=== PATIENT | female | born 2000 | race African-American/Black ===

== ENCOUNTER 2020-01-16 18:21 | Emergency (ER) | payer MEDICAID, SELFPAY ==
--- NOTE | 2020-01-16 | XR_ITS ---
EXAMINATION: XR CHEST CLINICAL INFORMATION: Shortness of breath COMPARISON: None TECHNIQUE: 2 views of the chest were obtained. FINDINGS: No significant abnormality is noted involving the heart, lungs, mediastinum, bony thorax or soft tissues. IMPRESSION: Unremarkable examination.
[2020-01-16 19:23] VITALS: BP 131/77; PULSE 88; RESP 16; TEMP 37; O2SAT 100; BMI 20.4
--- NOTE | 2020-01-16 20:34 | ED.URI ---
HPI - URI/Sore Throat General Chief Complaint: Dyspnea Stated Complaint: DIFF BREATHING Time Seen by Provider: 01/16/20 20:34 History of Present Illness HPI Narrative: patient complains of nasal congestion, postnasal drip, sore throat, pain when eating, no cough, she complains of difficulty breathing and when asked to explain she says it is when she feels congested and feels drip in the back of her throat, she denies any exertional symptoms MD elicited complaint: sore throat and nasal congestion Related Data Previous Rx's Medication Instructions Recorded cetirizine [All Day Allergy 10 mg PO DAILY PRN #14 cap 01/16/20 (cetirizine)] ibuprofen 400 mg PO Q6H PRN #14 tab 01/16/20 Allergies Allergy/AdvReac Type Severity Reaction Status Date / Time No Known Allergies Allergy Verified 01/16/20 19:25 Review of Systems Review of Systems: patient denies chest pain wheezing, no exertional symptoms, no calf pain, no control pills, no rash no abdominal pain no nausea no vomiting no dizziness no feeling faint PMFSH Past Medical History Source: nursing notes reviewed Medical History (Updated 01/16/20 @ 20:44 by VIPUL Hunter) Patient denies significant medical history Social History Social History Smoking Status: Never smoker Substance Use Type: Marijuana Advance Directives: No Advance Directives Information Provided: No Physical Exam Vital Signs and I&O and Narrative: Vital Signs and I&O: Vital Signs Temp 98.6 F 01/16/20 19:23 Pulse 88 01/16/20 19:23 Resp 16 01/16/20 19:23 BP 131/77 01/16/20 19:23 Pulse Ox 100 01/16/20 19:23 Intake & Output 01/16/20 01/16/20 01/17/20 06:59 18:59 06:59 Weight 48.988 kg Body Mass Index 20.4 general appearance, patient is A&O x3, no acute distress, breathing comfortably, speaking in full sentences The nose is mildly congested with clear discharge, there is no sinus tenderness The pharynx is normal in appearance with moist mucous membranes, the patient is not drooling there is no trismus and she can not swallow her own secretions The neck is supple The chest is clear with full equal breath sounds Abdomen soft nontender Heart sounds no murmur, rate and rhythm regular Extremities there is no calf tenderness there is no swelling Skin no rashes Course Course Course Narrative: triage note stated shortness of breath but on further conversation with the patient she used the words hard to breathe described nasal congestion and postnasal drip PERC score is 0 Patient's symptoms are most consistent with allergies or upper respiratory infection Discharge Plan Discharge Clinical Impression: Acute upper respiratory infection Patient Disposition: Home, Self-Care Additional Instructions: the symptoms described are most likely either a mild upper respiratory infection or allergies, there was no sign of any dangerous condition We are trying [facility] allergy medicine to see if it is helpful Return to ER any time for any change or worse condition or any concerns Your chest x-ray was normal Prescriptions: New All Day Allergy (cetirizine) 10 mg capsule 10 mg PO DAILY PRN (Reason: allergy symptoms) Qty: 14 RF: 0 ibuprofen 400 mg tablet 400 mg PO Q6H PRN (Reason: pain) Qty: 14 RF: 0
[2020-01-16] MEDS: Loratadine 10 MG TABLET PO (20:58)
== END 2020-01-16 21:05 | disposition home or self-care (01) ==
PROVIDERS: Physician Assistant Medical; Emergency Provider Emergency Medicine; PCP Family Medicine
DX: J06.9 Acute upper respiratory infection, unspecified (principal); F12.90 Cannabis use, unspecified, uncomplicated; Z20.828 Contact with and (suspected) exposure to other viral communicable diseases
CPT/HCPCS: 71046; 87635; 99283

== ENCOUNTER 2024-05-07 | Outpatient (REF) | payer MEDICAID, SELFPAY ==
--- OUTSIDE RECORDS SUMMARY | 2024-05-07 18:15 | XMS_ITS | Encounter Summary ---
Author Organization [facility] [employer] Address 75 [facility] 7t [place] [address] Care Team Providers Care Forest Technology Professor Name Role Phone Maria D Fernandez MD Primary Care Provider +1- [phone] Encounter Details Date Type Department Care Team (Late st Contact Info) Description 01/03/2023 Abstract [facility] 230 [place], [place] [phone] Maria D Fernandez MD 230 [place], [place] [phone] Preventative health care Social History Tobacco Use [...] facility documented in this encounter Care Teams Forest Technology Professor Relationship Specialty Start Date End Date Maria D Fernandez MD 230 [place], [place] [phone] PCP - General Family Medicine 04/09/18 documented as of this encounter
--- OUTSIDE RECORDS SUMMARY | 2024-05-07 18:15 | XMS_ITS | Encounter Summary ---
Author Organization [employer] Address 75 [facility] 7t [place] [address] Care Team Providers Care Processing Spec Name Role Phone Maria D Fernandez MD Primary Care Provider +1- [phone] Encounter Details Date Type Department Care Team [...] on filedocumented in this encounter Care Teams Processing Spec Relationship Specialty Start Date End Date Maria D Fernandez MD [address] [place] [phone] PCP - General Family Medicine 04/09/18 documented as of this encounter
--- OUTSIDE RECORDS SUMMARY | 2024-05-07 18:15 | XMS_ITS | Encounter Summary ---
Author Organization [employer] Address [address] [facility] 7t [place] [address] Care Team Providers Care Store Team Member Name Role Phone Maria D Fernandez MD Primary Care Provider +1- [phone] Reason for Visit * Reason Onset Date Comments chartprep 05/06/2024 Encounter Details Date Type Department Care Team ([facility] st Contact Info) Description 05/06/2024 Telephone [facility] 230 [place], [place] [phone] Marilee Castillo MA chartprep Social History Tobacco [...] on filedocumented in this encounter Care Teams Store Team Member Relationship Specialty Start Date End Date Maria D Fernandez MD [address] [place] [phone] PCP - General Family Medicine 04/09/18 documented as of this encounter
--- OUTSIDE RECORDS SUMMARY | 2024-05-07 18:15 | XMS_ITS | Encounter Summary ---
Author Organization [employer] Address 75 [facility] 7t [place] [address] Care Team Providers Care Strip Stamp Straightener Name Role Phone Maria D Fernandez MD Primary Care Provider +1- [phone] Encounter Details Date Type Department Care Team (Late st Contact Info) Description 05/07/2024 Telephone [facility] 230 [place], [place] [phone] Maria D Fernandez MD 230 [place], [place] [phone] Social History Tobacco Use Types Packs/Day Years [...] documented as of this encounter Care Teams Strip Stamp Straightener Relationship Specialty Start Date End Date Maria D Fernandez MD [address] [place] [phone] PCP - General Family Medicine 04/09/18 documented as of this encounter
--- OUTSIDE RECORDS SUMMARY | 2024-05-07 18:15 | XMS_ITS | Clinical Summary ---
Author Organization [employer] Address [address] [place] [address] 7t [place] [address] Care Team Providers Care Automatic Lathe Operator Name Role Phone Maria D Fernandez MD Primary Care Provider +1- [phone] Allergies No known active allergies Medications metroNIDAZOLE (Metrogel) 0.75 % vaginal gelIndications:B acterial Vaginosis Insert one applicator into vagina at bedtime for 7 nights 45 g 05/07/19 25 Active levonorgestrel-e thinyl estradiol (Aviane, Alesse, Lessina) 0.1-20 MG-MCG tabletIndication s:Family planning Take 1 tablet by mouth Once per day. 90 tablet 2 05/07/19 25 2025 Active medroxyPROGESTER one (Depo-Provera) 150 MG/ML injectionIndicat ions:Depo-Associate [employer] Of Women a contraceptive status Inject 1 mL (150 [...] 05/07/25 -followed by Dr. Adan Davila of [facility] -dental home encouraged -frederick care proxy [...] Description 05/07/2024 11:30 AM EST Procedure Visit [address] [address] Maria D Fernandez MD Papanicolaou smear for cervical cancer screening (Primary Dx); BV (bacterial vaginosis); Family planning; Routine screening for STI (sexually transmitted infection); Encounter for immunization; Family history of sickle cell anemia; Allergic reaction, sequela; Dietary counseling; Exercise counseling; Other specified health status 05/07/2024 Telephone [facility] [address] [place] [address] [place] [address] Maria D Fernandez MD 05/06/2024 Telephone [facility] 230 [place], [place] [phone] Marilee Castillo MA chartprep 05/06/[address] [phone] Maria D Fernandez MD 05/02/2024 Travel 03/25/2024 Telephone [facility] [address] [place] [address] Maria D Fernandez MD Appointment Request from [...] on patient's age to complete this topic Procedures Procedure Name Priority Date/Time Associated Diagnosis Comments CBC WITH AUTO DIFFERENTIAL Routine 05/07/2024 1:26 PM EST Family history of sickle cell anemia from Last 3 Months Results * (ABNORMAL) CBC auto differential (05/07/2024 1:26 PM EST) White Blood Count 4.7(L) 4.8 - 10.8 X10*3/uL [facility] Red Blood Count 4.45 4.20 - 5.50 X10*6/uL [facility] Hemoglobin 11.8(L) 12.0 - 16.0 g/dl [facility] Hematocrit 38.4 37.0 - 47.0 % [facility] Mean Corpuscular Volume 86.3 80.0 - 98.0 fL [facility] Mean Corpuscular Hemoglobin 26.5(L) 27.0 - 33.0 pg [facility] Mean Corpuscular HGB Conc 30.7(L) 31.0 - 35.0 g/dl [facility] Red Cell Distribution Width 12.6 11.0 - 16.0 % [facility] Platelet Count 357 160 - 400 X10*3/uL [facility] Mean Platelet Volume 9.8 9.4 - 12.3 fL [facility] Neutrophils Percent Auto 44.8(L) 45 - 73 % [facility] Imm Gran Pct Auto 0.0 0.0 - 0.4 % [facility] Lymphocytes Percent Auto 45.0(H) 20 - 40 % [facility] Monocytes Percent Auto 8.7 2 - 11 % [facility] Eosinophils Percent Auto 1.1 0 - 4 % [facility] Basophils Percent Auto 0.4 0 - 2 % [facility] NRBC Pct Auto 0.0 0.0 - 0.2 /100WBC [facility] Neutrophils Absolute Auto 2.1 2.0 - 8.3 x10*3/uL [facility] Imm Gran Abs Auto 0.00 0.00 - 0.03 X10*3/uL [facility] Lymphocytes Absolute Auto 2.1 1.2 - 4.9 X10*3/uL [facility] Monocytes Absolute Auto 0.4 0.1 - 1.2 X10*3/uL [facility] Eosinophils Absolute Auto 0.1 0.0 - 0.4 X10*3/uL [facility] Basophils Absolute Auto 0.0 0.0 - 0.2 X10*3/uL [facility] NRBC Abs Auto 0.000 0.0 - 0.012 X10*3/uL [facility] Blood Venous blood specimen / Unknown 05/07/2024 1:26 PM EST 05/07/2024 4:34 PM EST Maria D Fernandez MD LAB BLOOD ORDERABLES Final Result Performing Organization Address City/State/[facility] Co de Phone Number [facility] [address] [place] [address] [phone] from Last 3 Months Insurance [facility] H[facility] Care Teams Automatic Lathe Operator Relationship Specialty Start Date End Date Jim, MD Maria D [address] [place] [phone] PCP - General Family Medicine 04/09/18
--- OUTSIDE RECORDS SUMMARY | 2024-05-07 18:15 | XMS_ITS | Encounter Summary ---
Author Organization [employer] Address 75 [facility] 7t [place] [address] Care Team Providers Care Well Shooter Name Role Phone Maria D Fernandez MD Primary Care Provider +1- [phone] Encounter Details Date Type Department Care Team (Late st Contact Info) Description 05/06/2024 Telephone [facility] 230 [place] [address] Maria D Fernandez MD 230 [place], [place] [phone] Social History Tobacco Use Types Packs/Day Years [...] on filedocumented in this encounter Care Teams Well Shooter Relationship Specialty Start Date End Date Maria D Fernandez MD [address] [place] [phone] PCP - General Family Medicine 04/09/18 documented as of this encounter"
--- OUTSIDE RECORDS SUMMARY | 2024-05-07 18:15 | XMS_ITS | Encounter Summary ---
Author Organization [facility] [employer] Address 75 [facility] [address] [place] [address] Care Team Providers Care Veterans' Counselor Name Role Phone Maria D Fernandez MD Primary Care Provider +1- [phone] Encounter Details Date Type Department Care Team (Late st Contact Info) Description 04/21/2022 Telephone [facility] 230 [place], [place] [phone] Maria D Fernandez MD 230 [place], [place] [phone] Social History Tobacco Use Types Packs/Day Years [...] on filedocumented in this encounter Care Teams Veterans' Counselor Relationship Specialty Start Date End Date Maria D Fernandez MD 230 [place] [address] PCP - General Family Medicine 04/09/18 documented as of this encounter
--- OUTSIDE RECORDS SUMMARY | 2024-05-07 18:15 | XMS_ITS | Encounter Summary ---
Author Organization [facility] [employer] Address [address] [facility] 7[address] [place] [address] Care Team Providers Care Armature Inspector Name Role Phone Maria D Fernandez MD Primary Care Provider +1- [phone] Reason for Referral * Consultation (Routine) - Pending Review Specialty Diagnoses / Procedures Referred By Contarthur t Referred To Contact Allergy Diagnoses Allergic reaction, sequela Maria D Fernandez MD [address] [place] [address] Phone: tel: fax: Referral ID Status Reason Start Date Expiration Date Visits Requested Visits Authorized [id number] Pending Review Specialty Services Required 05/07/2024 05/07/2025 1 1 Reason for Visit * Reason Comments Pap Encounter Details Date Type Department Care Team (Latest Contact Info) Description 05/07/2024 11:30 AM EST Procedure Visit [facility] [address] [place] [address] [phone] Maria D Fernandez MD [address] [place] [address] [phone] Papanicolaou smear for cervical cancer screening (Primary [...] your housing situation today? I have mone eryna 05/07/[address] you li [...] evaluation. Doing well. Living and working in [place] in [place] LMP:05/03/24 Menses frequency:q mo Menses concerns:none Desires [...] Expires: 05/07/2025 documented as of this encounter Procedures Procedure Name Priority Date/Time Associated Diagnosis Comments CBC WITH AUTO DIFFERENTIAL Routine 05/07/2024 1:26 PM EST Family history of sickle cell anemia documented in this encounter Results * (ABNORMAL) CBC auto differential (05/07/2024 1:26 PM EST) White Blood Count 4.7(L) 4.8 - 10.8 X10*3/uL [facility] Red Blood Count 4.45 4.20 - 5.50 X10*6/uL [facility] Hemoglobin 11.8(L) 12.0 - 16.0 g/dl [facility] Hematocrit 38.4 37.0 - 47.0 % [facility] Mean Corpuscular Volume 86.3 80.0 - 98.0 fL [facility] Mean Corpuscular Hemoglobin 26.5(L) 27.0 - 33.0 pg [facility] Mean Corpuscular HGB Conc 30.7(L) 31.0 - 35.0 g/dl [facility] Red Cell Distribution Width 12.6 11.0 - 16.0 % [facility] Platelet Count 357 160 - 400 X10*3/uL [facility] Mean Platelet Volume 9.8 9.4 - 12.3 fL [facility] Neutrophils Percent Auto 44.8(L) 45 - 73 % [facility] Imm Gran Pct Auto 0.0 0.0 - 0.4 % [facility] Lymphocytes Percent Auto 45.0(H) 20 - 40 % [facility] Monocytes Percent Auto 8.7 2 - 11 % [facility] Eosinophils Percent Auto 1.1 0 - 4 % [facility] Basophils Percent Auto 0.4 0 - 2 % [facility] NRBC Pct Auto 0.0 0.0 - 0.2 /100WBC [facility] Neutrophils Absolute Auto 2.1 2.0 - 8.3 x10*3/uL [facility] Imm Gran Abs Auto 0.00 0.00 - 0.03 X10*3/uL [facility] Lymphocytes Absolute Auto 2.1 1.2 - 4.9 X10*3/uL [facility] Monocytes Absolute Auto 0.4 0.1 - 1.2 X10*3/uL [facility] Eosinophils Absolute Auto 0.1 0.0 - 0.4 X10*3/uL [facility] Basophils Absolute Auto 0.0 0.0 - 0.2 X10*3/uL [facility] NRBC Abs Auto 0.000 0.0 - 0.012 X10*3/uL [facility] Blood Venous blood specimen / Unknown 05/07/2024 1:26 PM EST 05/07/2024 4:34 PM EST us Maria D Fernandez MD LAB BLOOD ORDERABLES Final Result Performing Organization Address City/State/[facility] Co de Phone Number [facility] [address] [place] [phone] documented in this encounter Visit Diagnoses Diagnosis Papanicolaou smear [...] documented as of this encounter Care Teams Armature Inspector Relationship Specialty Start Date End Date Maria D Fernandez MD [address] [place] [phone] PCP - General Family Medicine 04/09/18 documented as of this encounter
[2024-05-08 17:20] LABS: CT PCR NOT DETECTED (Not Detect.); NG PCR NOT DETECTED (Not Detect.)
== END 2024-05-07 00:01 | disposition home or self-care (01) ==
LOC: HO.LNP
PROVIDERS: Visit Provider Family Medicine
DX: Z11.3 Encounter for screening for infections with a predominantly sexual mode of transmission (principal)
CPT/HCPCS: 87491; 87591

== ENCOUNTER 2024-05-07 13:23 | Outpatient (REF) | payer MEDICAID, SELFPAY ==
--- OUTSIDE RECORDS SUMMARY | 2024-05-07 15:31 | XMS_ITS | Clinical Summary ---
Author Organization [employer] Address [address] [place] [address] [address] [place] [address] Care Team Providers Care Refrigeration Specialist Name Role Phone Maria D Fernandez MD Primary Care Provider +1- [phone] Allergies No known active allergies Medications metroNIDAZOLE (Metrogel) 0.75 % vaginal gelIndications:B acterial Vaginosis Insert one applicator into vagina at bedtime for 7 nights 45 g 05/07/19 25 Active levonorgestrel-e thinyl estradiol (Aviane, Alesse, Lessina) 0.1-20 MG-MCG tabletIndication s:Family planning Take 1 tablet by mouth Once per day. 90 tablet 2 05/07/19 25 2025 Active medroxyPROGESTER one (Depo-Provera) 150 MG/ML injectionIndicat ions:Depo-Insulation Technician a contraceptive status Inject 1 mL (150 mg) into the shoulder, thigh, or buttocks every 3 (three) months. 1 mL 3 04/25/19 23 2024 Discontinued(M ed list cleanup (will not trigger notification to Pharmacy)) medroxyPROGESTER one (Depo-Provera) 150 MG/ML suspension prefilled syringe injection syringe 150 mg IM q three months 08/23/19 22 2024 Discontinued(M ed list cleanup (will not trigger notification to Pharmacy)) Hospital, Clinic, or Other Facility Administered Medication Ordered Dose Route Frequency Start Date End Date Status medroxyPROGESTERone (Depo-Provera) injection 150 mgIndications:Depo- Provera contraceptive status 150 mg IM Every 3 months 04/25/2022 Discontinued Active Problems Problem Noted Date Diagnosed Date Papanicolaou smear for cervical cancer screening 05/07/2024 Family planning 05/07/2024 Overview (05/07/2024): Risk benefits alternatives discussed. LMP ending today. Urine HCG negative. Start OCPs 05/07/24. Assessment & Plan (05/07/2024 1:14 PM EST): Risk benefits alternatives discussed. LMP ending today. Urine HCG negative. Start OCPs 05/07/24. Other specified health status 01/03/2023 Overview (05/07/2024): -next comprehensive annual evaluation due after 05/07/25 -followed by Dr[facility] Adan Davila of [facility] -dental home encouraged -frederick care proxy filed 05/07/2024 Resolved Problems Problem Noted Date Diagnosed Date Resolved Date Missed period 08/31/2022 05/07/2024 Unprotected sexual intercourse 08/31/2022 01/03/2023 Assessment & Plan (08/31/2022 3:08 PM EDT): Extensive counseling done She declined control methods I explain to her test may be negative today but is possibly to early she should repeat it in about 3-4 weeks Patient will be contacted for other lab results Laceration of right index fi nger without foreign body without damage to nail 08/31/2022/10/2024 Assessment & Plan (08/31/2022 3:08 PM EDT): Patient reassured Are got cleaned up Encounters Date Type Department Care Team Description 05/07/2024 11:30 AM EST Procedure Visit [address] [address] Maria D Fernandez MD Papanicolaou smear for cervical cancer screening (Primary Dx); BV (bacterial vaginosis); Family planning; Routine screening for STI (sexually transmitted infection); Encounter for immunization; Family history of sickle cell anemia; Allergic reaction, sequela; Dietary counseling; Exercise counseling; Other specified health status 05/07/2024 Telephone [facility] MEDICINE [address] [place] [address] [place] [address] Maria D Fernandez MD 05/06/2024 Telephone [facility] MEDICINE [address] [place], [place] [phone] Marilee Castillo MA chartprep 05/06/[address] [phone] Maria D Fernandez MD 05/02/2024 Travel 03/25/2024 Telephone [facility] [address] [place] [address] Maria D Fernandez MD Appointment Request from Last 3 Months Immunizations Name Administration Dates Next Due DTaP / IPV 11/04/2001, 1,2000,07/03 HPV, Quadrivalent 12/18/2013, 2,02/15/2011,07/28 Hep B, Adolescent or Pediatric 03/29/2006,2000,2000 Hib (PRP-T) 05/29/2001, 1,2000,07/03 IPV 2000, 1,2000,06/28 Influenza injectable quadriv alent preservative free 04/11/2017,12/27/2015,12/23/2014 Influenza, IIV3, injectable 12/18/2013, 9 Influenza, seasonal, injecta ble, preservative free 05/07/2024 MMR 12/07/2008,08/05/2007 Meningococcal MCV4P ACYW-135 04/11/2017,09/13/19 13 TD (adult), 2 Lf tetanus tox oid, preservative free, adsorbed 12/07/2008 Tdap 05/07/2024,09/12/2012 Varicella 01/07/2006,10/07/2001 Family History Medical History Relation Name Comments Hypertension Mother Relation Name Status Comments Mother Social History Tobacco Use Types Packs/Day Years Used Date Smoking Tobacco: Never Smokeless Tobacco: Never Tobacco Cessation:Counseling Given: Not Answered Alcohol Use Standard Drinks/Week Comments Never 0 (1 standard drink = 0.6 oz pur e alcohol) Depression Answer Date Recorded Patient Health Questionnaire-9 Score 0 05/07/2024 Patient Health Questionnaire-9 Score 0 05/07/2024 Last PHQ-9: Questionnaire Data Not on file 0 05/07/2024 Housing Stability Answer Date Recorded What is your housing situation today? I have mone reyna 05/07/[address] you li ve. Do you have problems with any of the following? None of the above 05/07/2024 Food Insecurity Answer Date Recorded Within the past 12 months, y ou worried that your food would run out before you got money to buy more: Never True 05/07/2024 Within the past 12 months,th e food you bought just didn't last and you didn't have enough money to get more: Never True Transportation Answer Date Recorded In the past 12 months, has l ack of transportation kept you from medical appts, meetings, work or from getting things needed for daily living? No 05/07/2024 Utilities Answer Date Recorded In the past 12 months, has t he electric, gas, oil or water company threatened to shut off services in your home? No 05/07/2024 Depression Answer Date Recorded Patient Health Questionnaire-2 Score 0 05/07/2024 Internet Access Answer Date Recorded Internet Access Q1 No 05/07/2024 Internet Access Q2 I do not want or need it 04/10 Comments Unknown Sex and Gender Information Value Date Recorded Sex Assigned at Female 02/06/2022 10:20 AM EDT Legal Sex Female 10:20 AM EDT Gender Identity Female 02/06/2022 10:20 AM EDT Sexual Orientation Straight 02/06/2022 10 :20 AM EDT Last Filed Vital Signs Vital Sign Reading Time Taken Comments Blood Pressure 115/62 05/07/2024 11:47 AM EST Pulse 64 08/31/2022 2:26 PM EDT Temperature 37.1 ??C (98.7 ??F) 05/07/2024 11:[address] Respiratory Rate 20 05/07/2024 11:47 AM EST Oxygen Saturation 96% 05/07/2024 11:47 AM EST Inhaled Oxygen Concentration - - Weight 71 kg (156 lb 9.6 oz) 05/07/2024 11:47 AM EST Height 155.6 cm (5' 1.25 ) 05/07/2024 11:[address] Body Mass Index 29.35 05/07/2024 11:47 AM EST Plan of Treatment Health Maintenance Due Date Last Done Comments HIV Screening 2000 Hepatitis C Screening 2018 Pap Smear 2021 Alcohol/Substance Use Screening 05/07/2025 05/07/2024 COVID-19 Vaccine ( season) 2025 Postponed from 12/09/2023 (Patient Refused) Depression Screening 05/07/2025 05/07/2024, 05/07/19 Family Planning (PISQ) 05/07/2025 05/07/2024 SDOH Screening 05/07/2025 05/07/2024 Tobacco Screening 05/07/2025 05/07/2024 DTaP/Tdap/Td Vaccines (8 - Td or Tdap) 05/07/2034 05/07/2024, 09/12/2012, 12/07/2008, Additional history exists Zoster Vaccines (1 of 2) 2050 RSV Patients and Patients Aged 60 years or older (1 - 1-dose 75+ series) 2075 HIB Vaccines Completed 05/29/2001, 10/08, 2000, Additional history exists IPV Vaccines Completed 11/04/2001, 10/08, 2000, Additional history exists Hepatitis B Vaccines Completed 03/29/2006, 2000, 2000 HPV Vaccines Completed 12/18/2013, 2 09/2011, 02/15/2011, Additional history exists Meningococcal Vaccine Completed 04/11/2017, 013 Influenza Vaccine Completed 05/07/2024, , 12/27/2015, Additional history exists Hepatitis A Vaccines Aged Out No long er eligible based on patient's age to complete this topic Pneumococcal Vaccine: Pediatrics (0 to 5 Years) and At-Risk Patients (6 to 49) Years) Aged Out No longer eligible based on patient's age to complete this topic RSV under 20 months Aged Out No longe r eligible based on patient's age to complete this topic Rotavirus Vaccines Aged Out No longer eligible based on patient's age to complete this topic Insurance [facility] HMO Care Teams Refrigeration Specialist Relationship Specialty Start Date End Date Jim, MD Maria D [address] [place] [id number] PCP - General Family Medicine 04/09/18
--- OUTSIDE RECORDS SUMMARY | 2024-05-07 15:31 | XMS_ITS | Encounter Summary ---
Author Organization [employer] Address [address] [facility] [address] [place] [address] Care Team Providers Care Assembler Garment Form Name Role Phone Maria D Fernandez MD Primary Care Provider +1- [phone] Encounter Details Date Type Department Care Team (Late st Contact Info) Description 05/06/2024 Telephone [facility] MEDICINE [address] [place] [address] Maria D Fernandez MD [address] [place], [place] [phone] Social History Tobacco Use Types Packs/Day Years Used Date Smoking Tobacco: Never Smokeless Tobacco: Never Alcohol Use Standard Drinks/Week Comments Never 0 [...] Orientation Straight 02/06/2022 10 :20 AM EDT documented as of this encounter Miscellaneous Notes * Telephone Encounter - Esperanza Manning - 05/06/2024 9:37 AM EST Tried calling pt due to insurance being rejected number on file goes straight to voicemail. documented in this encounter Plan of Treatment Not on file documented as of this encounter Visit Diagnoses Not on filedocumented in this encounter Care Teams Assembler Garment Form Relationship Specialty Start Date End Date Maria D Fernandez MD [address] [place] [id number] PCP - General Family Medicine 04/09/18 documented as of this encounter
--- OUTSIDE RECORDS SUMMARY | 2024-05-07 15:31 | XMS_ITS | Encounter Summary ---
Author Organization [facility] [employer] Address [address] [facility] [address] [place] [address] Care Team Providers Care Game Moderator Name Role Phone Maria D Fernandez MD Primary Care Provider +1- [phone] Reason for Referral * Consultation (Routine) - Pending Review Specialty Diagnoses / Procedures Referred By Contarthur t Referred To Contact Allergy Diagnoses Allergic reaction, sequela Maria D Fernandez MD [address] [place] [phone] Phone: tel: fax: Referral ID Status Reason Start Date Expiration Date Visits Requested Visits Authorized [id number] Pending Review Specialty Services Required 05/07/2024 05/07/2025 1 1 Reason for Visit * Reason Comments Pap Encounter Details Date Type Department Care Team (Latest Contact Info) Description 05/07/2024 11:30 AM EST Procedure Visit [facility] MEDICINE [address] [place] [address] [phone] Maria D Fernandez MD [address] [place] [address] [phone] Papanicolaou smear for cervical cancer screening (Primary Dx); BV (bacterial vaginosis); Family planning; Routine screening for STI (sexually transmitted infection); Encounter for immunization; Family history of sickle cell anemia; Allergic reaction, sequela; Dietary counseling; Exercise counseling; Other specified health status Social History Tobacco Use Types Packs/Day Years [...] AM EDT documented as of this encounter Last Filed Vital Signs Vital Sign Reading Time Taken Comments Blood Pressure 115/62 05/07/2024 11:47 AM EST Pulse - - Temperature 37.1 ??C (98.7 ??F) 05/07/2024 11:[address] Respiratory Rate 20 05/07/2024 11:47 AM EST Oxygen Saturation 96% 05/07/2024 11:47 AM EST Inhaled Oxygen Concentration - - Weight 71 kg (156 lb 9.6 oz) 05/07/2024 11:47 AM EST Height 155.6 cm (5' 1.25 ) 05/07/2024 11:[address] Body Mass Index 29.35 05/07/2024 11:47 AM EST documented in this encounter Progress Notes * Maria D Fernandez MD - 05/07/2024 11:30 AM EST Karyn Becerril is a 24 y.o. female who presents to the office today for new patient intake, PAP and comprehensive annual evaluation. Doing well. Living and working in [place] in [employer]. LMP:05/03/24 Menses frequency:q mo Menses concerns:none Desires within the next year:no Brith control: OCPs started 05/07/24 Social History Tobacco: denied Drugs: occasional mariajuana Alcohol: occasional glass of wine Sexuality: one male partner (TITI) denies DV Suicide/Depression: The patient denies any present symptoms of depression or anxiety. Current Outpatient Medications: levonorgestrel-ethinyl estradiol (Aviane, Alesse, Lessina) 0.1-20 MG-MCG tablet, Take 1 tablet by mouth Once per day., Disp: 90 tablet, Rfl: 2 metroNIDAZOLE (Metrogel) 0.75 % vaginal gel, Insert one applicator into vagina at bedtime for 7 nights, Disp: 45 g, Rfl: 0 No current facility-administered medications for this visit. No Known Allergies No past medical history on file. No past surgical history on file. Family History Problem Relation Name Age of Onset Hypertension Mother Previous paps:none Mammogram: not age applicable. Objective Visit Vitals BP 115/62 (BP Location: Left arm, Patient Position: Sitting, BP Cuff Size: Adult) Temp 98.7 ??F (37.1 ??C) (Temporal) Resp 20 Ht 5' 1.25 (1.556 m) Wt 156 lb 9.6 oz (71 kg) LMP 05/01/2024 SpO2 96% BMI 29.35 kg/m?? Smoking Status Never BSA 1.75 m?? Physical Exam Constitutional: Appearance: Normal appearance. HENT: Head: Normocephalic. Right Ear: Tympanic membrane normal. Left Ear: Tympanic membrane normal. Mouth/Throat: Pharynx: Oropharynx is clear. Eyes: Pupils: Pupils are equal, round, and reactive to light. Cardiovascular: Rate and Rhythm: Normal rate and regular rhythm. Heart sounds: Normal heart sounds. Pulmonary: Effort: Pulmonary effort is normal. Breath sounds: Normal breath sounds. Chest: Breasts: Right: Normal. Left: Normal. Abdominal: General: Abdomen is flat. Palpations: There is no mass. Tenderness: There is no abdominal tenderness. Genitourinary: General: Normal vulva. Vagina: Normal. Cervix: Normal. Uterus: Normal. Musculoskeletal: General: Normal range of motion. Cervical back: Normal range of motion and neck supple. Lymphadenopathy: Cervical: No cervical adenopathy. Upper Body: Right upper body: No supraclavicular, axillary or pectoral adenopathy. Left upper body: No supraclavicular, axillary or pectoral adenopathy. Skin: General: Skin is warm and dry. Neurological: General: No focal deficit present. Mental Status: She is alert. Psychiatric: Behavior: Behavior normal. 24 y.o. female annual evaluation. Problem List Items Addressed This Visit Papanicolaou smear for cervical cancer screening - Primary Relevant Orders Pap Smear Family planning Risk benefits alternatives discussed. LMP ending today. Urine HCG negative. Start OCPs 05/07/24. Relevant Medications levonorgestrel-ethinyl estradiol (Aviane, Alesse, Lessina) 0.1-20 MG-MCG tablet Other specified health status Relevant Orders Lipid Panel, Standard Other Visit Diagnoses BV (bacterial vaginosis) Relevant Medications metroNIDAZOLE (Metrogel) 0.75 % vaginal gel Routine screening for STI (sexually transmitted infection) Relevant Orders Chlamydia/N. Gonorrhoeae RNA, TMA, Vagina Hepatitis C Antibody with Reflex to HCV, RNA, Quantitative, Real-Time PCR HIV-1/2 Antigen and Antibodies, Fourth Generation, with Reflexes Syphilis Screen Encounter for immunization Relevant Orders TDAP VACCINE 7 yrs + (Completed) FLU VACCINE TRIVALENT (Fluarix) 6 mo + (Completed) Family history of sickle cell anemia Relevant Orders Sickle Cell Screen CBC auto differential Allergic reaction, sequela Relevant Orders Referral to Allergy Dietary counseling Exercise counseling Pap with HPV testing done STI testing offered, PreP offered Preventative care and harm reduction discussed Annual Evaluation -Normal growth and development. -Anticipatory guidance discussed. -Preventative care / harm reduction discussed. Follow up in about 3 months (around 08/05/2024) for televisit for follow up control. I, Annise Catrachita, am serving as a scribe to document services personally performed by Dr. Santillan, based on the patient's response to questions by provider and providers statements to me. documented in this encounter Miscellaneous Notes * Assessment & Plan Note - Maria D Fernandez MD - 05/07/2024 1:14 PM EST Associated Problem(s): Family planning Risk benefits alternatives discussed. LMP ending today. Urine HCG negative. Start OCPs 05/07/24. documented in this encounter Plan of Treatment Scheduled Orders Name Type Priority Associated Diagnoses Order Schedule Pap Smear Pathology and Cytology Routine Papanicolaou smear for cervical cancer screening Ordered: 05/07/2024 Chlamydia/N. Gonorrhoeae RNA, TMA, Vagina Microbiology Routine Routine screening for STI (sexually transmitted infection) Ordered: 05/07/2024 Lipid Panel, Standard Lab Routine Other specified health status Expected: 05/07/2024 (Approximate), Expires: 05/07/2025 Hepatitis C Antibody with Reflex to HCV, RNA, Quantitative, Real-Time PCR Lab Routine Routine screening for STI (sexually transmitted infection) Expected: 05/07/2024 (Approximate), Expires: 05/07/2025 HIV-1/2 Antigen and Antibodies, Fourth Generation, with Reflexes Lab Routine Routine screening for STI (sexually transmitted infection) Expected: 05/07/2024 (Approximate), Expires: 05/07/2025 Syphilis Screen Lab Routine Routine screening for STI (sexually transmitted infection) Expected: 05/07/2024 (Approximate), Expires: 05/07/2025 Sickle Cell Screen Lab Routine Family history of sickle cell anemia Expected: 05/07/2024 (Approximate), Expires: 05/07/2025 CBC auto differential Lab Routine Family history of sickle cell anemia Expected: 05/07/2024 (Approximate), Expires: 05/07/2025 Scheduled Referrals Name Type Priority Associated Diagnoses Orde r Schedule Referral to Allergy Outpatient Referral Routine Allergic reaction, sequela Expected: 05/07/2024 (Approximate), Expires: 05/07/2025 documented as of this encounter Visit Diagnoses Diagnosis Papanicolaou smear for cervical cancer screening- Primary Screening for malignant neoplasm of the cervix BV (bacterial vaginosis) Unspecified vaginitis and vulvovaginitis Family planning Other general counseling and advice for contraceptive management Routine screening for STI (sexually transmitted infection) Screening examination for venereal disease Encounter for immunization Family history of sickle cell anemia Family history of other blood disorders Allergic reaction, sequela Dietary counseling Dietary surveillance and counseling Exercise counseling Other specified health status documented in this encounter Additional Health Concerns Assessment Noted Time PHQ-9 Depression Total Score: 0 05/07/19 25 11:49 AM EST documented as of this encounter Care Teams Game Moderator Relationship Specialty Start Date End Date Maria D Fernandez MD [address] [place] [id number] PCP - General Family Medicine 04/09/18 documented as of this encounter
--- OUTSIDE RECORDS SUMMARY | 2024-05-07 15:31 | XMS_ITS | Encounter Summary ---
Author Organization [employer] Address [address] [facility] 7t [place] [address] Care Team Providers Care Health Technical Writer Name Role Phone Maria D Fernandez MD Primary Care Provider +1- [phone] Reason for Visit * Reason Onset Date Comments chartprep 05/06/2024 Encounter Details Date Type Department Care Team ([facility] st Contact Info) Description 05/06/2024 Telephone [facility] MEDICINE [address] [place], [place] [phone] Marilee Castillo MA chartprep Social History Tobacco Use Types Packs/Day Years [...] encounter Miscellaneous Notes * Telephone Encounter - Marilee Castillo MA - 05/06/2024 11:52 AM EST Chart Prep Labs: not applicable Images: not applicable Vaccines due: Covid Due and Flu Due Referrals: Not Applicable Screenings: Not Applicable Overdue care gaps: Sbirt, SDOH, PHQ-9, and Oral Health documented in this encounter Plan of Treatment Not on file documented as of this encounter Visit Diagnoses Not on filedocumented in this encounter Care Teams Health Technical Writer Relationship Specialty Start Date End Date Maria D Fernandez MD [address] [place] [id number] PCP - General Family Medicine 04/09/18 documented as of this encounter
--- OUTSIDE RECORDS SUMMARY | 2024-05-07 15:31 | XMS_ITS | Encounter Summary ---
Author Organization [employer] Address 75 [facility] 7t [place] [address] Care Team Providers Care Manager Business Name Role Phone Maria D Fernandez MD Primary Care Provider +1- [phone] Encounter Details Date Type Department Care Team (Late st Contact Info) Description 05/07/2024 Telephone [facility] [address] [place], [place] [phone] Maria D Fernandez MD 230 [place], [place] [phone] Social History Tobacco Use Types Packs/Day Years [...] encounter Miscellaneous Notes * Telephone Encounter - Kelly Tavera - 05/07/2024 1:35 PM EST Called Patient left vm, advised to call back and make f/u with PCP televisit 15 min end of July. documented in this encounter Plan of Treatment Not on file documented as of this encounter Visit Diagnoses Not on filedocumented in this encounter Additional Health Concerns Assessment Noted Time PHQ-9 Depression Total Score: 0 05/07/19 25 11:49 AM EST documented as of this encounter Care Teams Manager Business Relationship Specialty Start Date End Date Maria D Fernandez MD [address] [place] [phone] PCP - General Family Medicine 04/09/18 documented as of this encounter
--- OUTSIDE RECORDS SUMMARY | 2024-05-07 15:31 | XMS_ITS | Encounter Summary ---
Author Organization [employer] Address 75 [facility] 7t [place] [address] Care Team Providers Care Special Education Associate Name Role Phone Maria D Fernandez MD Primary Care Provider +1- [phone] Encounter Details Date Type Department Care Team (Latest Contact Info) Description 05/02/2024 Travel Social History Tobacco Use Types Packs/Day Years Used Date Smoking Tobacco: Never Smokeless Tobacco: Never Alcohol Use Standard Drinks/Week Comments Never 0 (1 standard drink = 0.6 oz pur e alcohol) Comments Unknown Sex and Gender Information Value Date Recorded Sex Assigned at Female 02/06/2022 10:20 AM EDT Legal Sex Female 10:20 AM EDT Gender Identity Female 02/06/2022 10:20 AM EDT Sexual Orientation Straight 02/06/2022 10 :20 AM EDT documented as of this encounter Plan of Treatment Not on file documented as of this encounter Visit Diagnoses Not on filedocumented in this encounter Care Teams Special Education Associate Relationship Specialty Start Date End Date Maria D Fernandez MD [address] [place] [phone] PCP - General Family Medicine 04/09/18 documented as of this encounter
--- OUTSIDE RECORDS SUMMARY | 2024-05-07 15:32 | XMS_ITS | Encounter Summary ---
Author Organization [facility] [employer] Address 75 [facility] 7t [place] [address] Care Team Providers Care Air And Water Filler Name Role Phone Maria D Fernandez MD Primary Care Provider +1- [phone] Encounter Details Date Type Department Care Team (Late st Contact Info) Description 01/03/2023 Abstract [facility] 230 [place], [place] [phone] Maria D Fernandez MD [address] [place], [place] [phone] Preventative health care Social History Tobacco Use Types Packs/Day Years [...] as of this encounter Visit Diagnoses Diagnosis Preventative health care Routine general medical examination at a health care facility documented in this encounter Care Teams Air And Water Filler Relationship Specialty Start Date End Date Maria D Fernandez MD 230 [place], [place] [phone] PCP - General Family Medicine 04/09/18 documented as of this encounter
--- OUTSIDE RECORDS SUMMARY | 2024-05-07 15:32 | XMS_ITS | Encounter Summary ---
Author Organization [facility] [employer] Address 75 [facility] [address] [place] [address] Care Team Providers Care Manager Credit Collections Name Role Phone Maria D Fernandez MD Primary Care Provider +1- [phone] Encounter Details Date Type Department Care Team (Late st Contact Info) Description 04/21/2022 Telephone [facility] 230 [place], [place] [phone] Maria D Fernandez MD 230 [place], [place] [phone] Social History Tobacco Use Types Packs/Day Years Used Date Smoking Tobacco: Never Assessed Comments Unknown Sex and Gender Information Value [...] on filedocumented in this encounter Care Teams Manager Credit Collections Relationship Specialty Start Date End Date Maria D Fernandez MD 230 [place] [address] PCP - General Family Medicine 04/09/18 documented as of this encounter
[2024-05-07 16:38] LABS: MANUAL DIFF FLAG NO
[2024-05-07 16:46] LABS: Basophils Percent Auto 0.4 % (0-2); Eosinophils Absolute Auto 0.1 X10*3/uL (0.0-0.4); Eosinophils Percent Auto 1.1 % (0-4); Hematocrit 38.4 % (37.0-47.0); Hemoglobin 11.8 g/dl (12.0-16.0); Lymphocytes Absolute Auto 2.1 X10*3/uL (1.2-4.9); Mean Corpuscular HGB Conc 30.7 g/dl (31.0-35.0); Mean Corpuscular Hemoglobin 26.5 pg (27.0-33.0); Mean Corpuscular Volume 86.3 fL (80.0-98.0); Mean Platelet Volume 9.8 fL (9.4-12.3); Monocytes Absolute Auto 0.4 X10*3/uL (0.1-1.2); Monocytes Percent Auto 8.7 % (2-11); Neutrophils Absolute Auto 2.1 x10*3/uL (2.0-8.3); Neutrophils Percent Auto 44.8 % (45-73); Platelet Count 357 X10*3/uL (160-400); Red Blood Count 4.45 X10*6/uL (4.20-5.50); Red Cell Distribution Width 12.6 % (11.0-16.0); White Blood Count 4.7 X10*3/uL (4.8-10.8)
[2024-05-08 05:27] LABS: Syphilis Screen Nonreactive (Nonreactive)
[2024-05-08 05:46] LABS: HIV AB/AG Nonreactive (Nonreactive); HIV Num 1 0.09 S/CO (0.00-0.99); ~Hepatitis C Antibody Nonreactive (Nonreactive)
[2024-05-08 08:27] LABS: Sickle Cell Scr NEGATIVE (NEGATIVE)
== END 2024-05-07 13:24 | disposition home or self-care (01) ==
LOC: HO.HHCL 13:23
PROVIDERS: Visit Provider Family Medicine
DX: Z12.4 Encounter for screening for malignant neoplasm of cervix (principal); Z11.4 Encounter for screening for human immunodeficiency virus [HIV]; Z11.3 Encounter for screening for infections with a predominantly sexual mode of transmission; Z83.2 Family history of diseases of the blood and blood-forming organs and certain disorders involving the immune mechanism
CPT/HCPCS: 36415; 85025; 85660; 86780; 86803; 87389; 88175